=== PATIENT | female | born 1965 | race Caucasian/White ===

== ENCOUNTER 2020-08-29 07:10 | Day surgery (SDCO) | payer MEDICARE, OTHER ==
[~2020-08-29 07:10] MED LIST: ATENOLOL25 MG PO; BUSPIRONE HCL30 MG PO; CALCIUM 600 +1 EAC3 PO; GABAPENTIN600 MG PO; IBUPROFEN800 M1 PO; NORCO 5-325 TA1 EACH PO; PAXIL40 MG PO; PO; SYNTHROID50 MCG PO; VOLTAREN **OUT75 MG PO
[2020-08-29 08:03] LABS: HGB 14.4 g/dl (12.5-16.0); MCH 31.6 pg (25.0-31.0); MCHC 32.7 g/dL (32.0-36.0); MCV 96.7 fL (78.0-100.0); MPV 9.1 fL (6.0-9.5); RBC 4.55 M/uL (4.20-5.40); RDW 11.9 % (11.5-14.0); WBC 8.8 K/uL (4.0-10.5)
[2020-08-29] MEDS ORDERED: IBUPROFEN800 M1 PO (11:31)
[2020-08-29] MEDS ORDERED: COLACE100 MG PO (11:31)
[2020-08-29] MEDS ORDERED: PERCOCET 5-3251 EACH PO (11:32)
[2020-08-29] MEDS ORDERED: ZOFRAN4 M1 PO (11:32)
== END 2020-08-29 16:31 | disposition home or self-care (01) ==
LOC: FSDC 07:10
PROVIDERS: ADMIT Obstetrics & Gynecology
DX: N80.0 Endometriosis of uterus (principal); N72 Inflammatory disease of cervix uteri; N95.0 Postmenopausal bleeding; N32.3 Diverticulum of bladder; R10.2 Pelvic and perineal pain; K40.20 Bilateral inguinal hernia, without obstruction or gangrene, not specified as recurrent; F41.8 Other specified anxiety disorders; E03.9 Hypothyroidism, unspecified; R30.0 Dysuria; G89.29 Other chronic pain; M54.5 Low back pain; Z80.49 Family history of malignant neoplasm of other genital organs; Z88.2 Allergy status to sulfonamides; Z20.828 Contact with and (suspected) exposure to other viral communicable diseases
CPT/HCPCS: 36415; 86850; 86900; 86901; G0378; J0690; J1644; J1885; J2250; J2370; J2405; J2704; J3010; J7120

== ENCOUNTER 2020-09-04 14:30 | Emergency (ER) | payer MEDICARE, OTHER ==
[~2020-09-04 14:30] MED LIST changes: +COLACE100 MG PO; +PERCOCET 5-3251 EACH PO; +ZOFRAN4 M1 PO
[2020-09-04] MEDS ORDERED: PREDNISONE 20MG20 MG PO (17:32)
[2020-09-04] MEDS ORDERED: CYCLOBENZAPRINE10 MG PO (17:32)
== END 2020-09-04 18:00 | disposition home or self-care (01) ==
LOC: FER 14:30
DX: S76.112A Strain of left quadriceps muscle, fascia and tendon, initial encounter (principal); X58.XXXA Exposure to other specified factors, initial encounter; Z98.890 Other specified postprocedural states
CPT/HCPCS: 93971; J1100